=== PATIENT | female | born 1955 | race Asian ===

== ENCOUNTER 2017-01-01 10:04 | Day surgery (SDC) | payer OTHER ==
[2016-12-29 14:29] VITALS: BMI 28.3
[2017-01-01] MEDS ORDERED: PROPOFOL 20 ML ONE ×2 (11:06)
[2017-01-01] MEDS ORDERED: LIDOCAINE HCL/PF 2% SDV 5ML VIAL ONE (11:06)
[2017-01-01 11:49] VITALS: TEMP 97
[2017-01-01 12:40] VITALS: BP 128/67; PULSE 66
--- NOTE | 2017-01-03 11:20 | PATH ---
Surgical Pathology Report Patient Name: RONIT BRUMFIELD [facility]. Rec. #: [id number] /Age/Gender: 1955 (Age: 61) / F Account: [id number] Location: [facility] Taken: 01/01/2017 Received: 01/01/2017 Reported: 01/02/2017 Physicians: Herminio Sigala M.D. Specimen(s) Received BX STOMACH Clinical History Epigastric pain Schatzki's ring, grade 1 varix, gastritis Final Diagnosis STOMACH, BIOPSY: GASTRIC ANTRAL AND OXYNTIC MUCOSA WITH MODERATE CHRONIC GASTRITIS AND MILD REACTIVE GASTROPATHY. NEGATIVE FOR INTESTINAL METAPLASIA OR DYSPLASIA. IMMUNOSTAIN FOR H. PYLORI IS NEGATIVE FOR ORGANISMS. Electronically Signed Terry Ceja M.D. Gross Description Received in formalin, labeled "biopsy stomach" are 4 jim, irregular portions of soft tissue ranging from 0.2-0.6 cm in greatest dimension. The specimens are submitted in toto in one cassette. /01/01/201701/01/2017
== END 2017-01-01 12:40 | disposition home or self-care (01) ==
LOC: JASU-ENDO 10:04
PROVIDERS: ATTEND Internal Medicine Gastroenterology
PROC: 0DB68ZX Excision of Stomach, Via Natural or Artificial Opening Endoscopic, Diagnostic (ICD-10-PCS; principal; 2017-01-01 11:30)
DX: K29.70 Gastritis, unspecified, without bleeding (principal); K44.9 Diaphragmatic hernia without obstruction or gangrene; K22.2 Esophageal obstruction; I85.00 Esophageal varices without bleeding
CPT/HCPCS: 88305-TC; 88342-TC